=== PATIENT | female | born 1985 ===

== ENCOUNTER 2022-01-12 14:12 | Outpatient (REF) | payer OTHER, SELFPAY ==
--- NOTE | ~2022-01-12 | CT_ITS ---
EXAMINATION: CT SINUS WITHOUT CONTRAST CLINICAL INFORMATION: Nasal polyps, sinusitis. COMPARISON: None TECHNIQUE: Axial 2 mm thin and reformatted 2 mm thin sagittal and coronal images of sinuses were obtained. This CT examination was performed using dose optimization techniques as appropriate, variously including the following: *Automated exposure control *Adjustment of mA and/or kV according to patient size (this includes techniques or standardized protocols for targeted exams where dose is matched to indication/reason for exam; i.e. extremities or head) *Use of iterative reconstruction technique DLP: 93 mGy-cm FINDINGS: FRONTAL SINUSES AND DRAINAGE PATHWAYS: There is minimal thickening of bilateral frontal sinuses with obstruction of frontoethmoidal recess from mucosal thickening more so on the right. MAXILLARY SINUSES AND DRAINAGE PATHWAYS: There is moderate mucosal thickening involving bilateral maxillary sinuses with obstructed ostiomeatal complex from mucosal thickening, more so on the right. ETHMOID SINUSES: There is diffuse mucoperiosteal thickening bilateral ethmoid sinuses slightly greater on the right. The ethmoid roofs are symmetric, with olfactory fossa depth of 0.4 cm on the right and 0.3 cm on the left. SPHENOID SINUSES AND DRAINAGE PATHWAYS: There is mucoperiosteal thickening bilateral sphenoid sinuses with complete opacification of left sphenoid sinus. There is vertical septation of the right sphenoid sinus. The sphenoid ostia are obstructed. The carotid canals are covered by bone. NASAL CAVITY/NASOPHARYNX: The nasal cavity is clear. There is mild nasal septal deviation/spurring to the right. The nasopharynx is symmetric. ADDITIONAL RELEVANT FINDINGS: No periapical disease is seen. The TMJs articulate normally. The orbits and skull base soft tissues are unremarkable. The middle ear cavities and mastoid air cells are clear. Limited evaluation demonstrates no acute intracranial findings. CT/CT sinus wo con IMPRESSION: Chronic pansinusitis. The inflammatory changes are more prominent on the right side throughout the sinuses. Obstructed bilateral ostiomeatal and frontoethmoidal recesses.
== END 2022-01-12 14:13 | disposition home or self-care (01) ==
LOC: HO.CT 14:12
PROVIDERS: Visit Provider Otolaryngology
DX: J33.9 Nasal polyp, unspecified (principal); J01.81 Other acute recurrent sinusitis
CPT/HCPCS: 70486

== ENCOUNTER 2025-05-07 11:29 | Outpatient (AMB) | payer OTHER, SELFPAY ==
--- OUTSIDE RECORDS SUMMARY | 2025-05-07 12:52 | XMS_ITS | Clinical Summary ---
Author Organization [facility] Address [address] [place] [id number] Care Team Providers Care Band Saw Runner Name Role Phone Rachna Jc MD Primary Care Provider [phone] Allergies Active Allergy Reactions Criticality Noted Date Comments Cholestatin Other (See Comments) 03/10/2022 Grass Pollen(K-O-R-T-Swt Burton) Other (See Comments) 03/10/2022 Other Other (See Comments) 03/10/2022 Pollen Extract Other (See Comments) 03/10/2022 Shellfish Allergy Unknown/Patient and Family Unable to Define Medium 01/08/2022 Medications amLODIPine (NORVASC) 5 MG tablet Take 1 tablet (5 mg total) by mouth daily. 2 Active montelukast (SINGULAIR) 10 MG tablet Take 1 tablet (10 mg total) by mouth nightly. 2 Active Symbicort 160-4.5 MCG/ACT inhaler INHALE 2 PUFFS 2 TIMES A DAY IN THE AM & PM USE WITH SPACER CHAMBER RINSE MOUTH AND THROAT 3 Active ondansetron (ZOFRAN-ODT) 4 MG disintegrating tablet TAKE 1 TABLET BY MOUTH EVERY 6 HOURS NEEDED NAUSEA/VOMIT ING 3 Active enoxaparin (LOVENOX) 40 MG/0.4ML injectionIndication s:BMI 40.0-44.9, adult (HCC) Inject 0.4 mL (40 mg total) under the skin daily. 11.2 mL 3 Active semaglutide (OZEMPIC) (1 mg/dose pen) prefilled pen injection Inject 1 mg under the skin once a week. TUESDAYS Active cyanocobalamin (VITAMIN B-12) 1000 MCG/ML injection Inject 0.1 mL (100 mcg total) under the skin every 7 days. Active triamcinolone (NASACORT AQ) 55 MCG/ACT Aerosol nasal spray 1 spray into each nostril nightly. Active cephalexin (KEFLEX) 500 MG capsuleIndications: Status post bilateral breast reduction Take 1 capsule (500 mg total) by mouth 4 (four) times a day. 12 capsule 3 Active oxyCODONE (ROXICODONE) 5 MG immediate release tabletIndications:S tatus post bilateral breast reduction Take 1 tablet (5 mg total) by mouth 4 times daily (every 6 hours) as needed for severe pain. Max Daily Amount: 20 mg 12 tablet 3 Active Active Problems Problem Noted Date Diagnosed Date Breast hypertrophy 02/20/2023 BMI 40.0-44.9, adult 02/20/2023 Anxiety disorder 03/06/2022 Myofascial pain syndrome, cervical 03/06/2022 Hypertension 03/06/2022 Migraine headache 03/06/2022 Family History Medical History Relation Name Comments No Known Problems Father Hypertension Mother Relation Name Status Comments Father Alive Mother Alive Social History Tobacco Use Types Packs/Day Years Used Date Smoking Tobacco: Never Smokeless Tobacco: Never Tobacco Cessation:Counseling Given: Not Answered Alcohol Use Standard Drinks/Week Comments Yes 0 (1 standard drink = 0.6 oz pur e alcohol) rarely once a month AUDIT-C Answer Date Recorded Q1: How often do you have a drink containing alc ohol? Monthly or less 03/04/2023 Q2: How many drinks containi ng alcohol do you have on a typical day when you are drinking? 1 or 2 03/04/2023 Q3: How often do you have si x or more drinks on one occasion? Never 03/04/2023 Comments No Sex and Gender Information Value Date Recorded Sex Assigned at Female 03/04/2023 2:57 PM EDT Legal Sex Female 9:39 AM EST Gender Identity Female 03/04/2023 2:57 PM EDT Sexual Orientation Heterosexual (straight) 03/04 2:57 PM EDT Last Filed Vital Signs Vital Sign Reading Time Taken Comments Blood Pressure 123/75 03/12/2023 12:00 PM EDT Pulse 68 03/12/2023 12:00 PM EDT Temperature 36.2 C (97.2 F) 03/12/2023 6:33 AM EDT Respiratory Rate 14 03/12/2023 12:00 PM EDT Oxygen Saturation 97% 03/12/2023 12:00 PM EDT Inhaled Oxygen Concentration - - Weight 94.3 kg (208 lb) 03/31/2023 12:56 PM EDT Height 157.5 cm (5' 2 ) 03/31/2023 12:56 PM EDT Body Mass Index 38.04 03/31/2023 12:56 PM EDT Plan of Treatment Health Maintenance Due Date Last Done Comments Hepatitis C Virus Screening 1987 HIV Screening 2000 DTaP/Tdap/Td Vaccines (1 - Tdap) 2006 Hepatitis B Vaccines (1 of 3 - 19+ 3-dose series) 2006 Pap Smear (Ages 21-65) 2008 HPV Vaccines (1 - 3-dose SCD M series) 2014 COVID-19 Vaccine ( - 2023-2 5 season) 2024 08/28/2021, 01/11/2021, 12/14/2020 Influenza Vaccine 04/20/2025 06/25/2016, 06/25/2016 Pneumococcal Vaccine: Pediatric (0-5 Years) and At-Risk Patients (6 to 49 Years) Aged Out No longer eligible b ased on patient's age to complete [place] [id number] [facility] Advance Directives * Full Code (Latest Code Status on File) Date Activated Date Inactivated Comments 03/12/2023 6:35 AM * Full Code Date Activated Date Inactivated Comments 03/06/2022 10:45 AM 03/12/2023 6:31 AM Care Teams Band Saw Runner Relationship Specialty Start Date End Date Rachna Jc MD [address] [place] [address] PCP - General Internal Medicine 10/24/21
--- OUTSIDE RECORDS SUMMARY | 2025-05-07 12:52 | XMS_ITS ---
Author Name [facility] Organization Unknown History of Medication Use Medication Directions Dispensed Refills Start Date End Date Stat us montelukast (Singulair) 10 MG tablet Take 1 tablet (10 mg total) by mouth. 01/19/2022 active amLODIPine (NORVASC) 5 MG tablet Take 1 tablet (5 mg total) by mouth daily. 01/02/2022 active semaglutide (OZEMPIC) (1 mg/dose pen) prefilled pen injection Inject 1 mg under the skin once a week. TUESDAYS active Allergies Allergen Reaction Severity Comment Documented Date Source Statu s POLLEN EXTRACT OTHER (SEE COMMENTS) 03/10/2022 [facility] active SHELLFISH ALLERGY UNKNOWN/PATIENT AND FAMILY UNABLE TO DEFINE 01/08/2022 [facility] active CHOLESTATIN OTHER (SEE COMMENTS) [facility] OTHER OTHER (SEE COMMENTS) [facility] Problems Problem Status Onset Date Problem Type Date of Resoluti on Source Breast hypertrophy active 2023-02-20 ProblemAct [facility] Migraine headache active 2022-03-06 ProblemAct [facility] S/P bilateral breast reduction active EncounterDiagnosisAct [facility] Hypertension active 2022-03-06 ProblemAct [facility] Anxiety disorder active 2022-03-06 ProblemAct [facility] BMI 40.0-44.9, adult active 2023-02-20 ProblemAct [facility] Myofascial pain syndrome, cervical active 2022-03-06 ProblemAct [facility] Encounters Encounter Type Encounter Reason Primary Diagnosis Location Date Ambulatory Other specified postprocedural states [facility] 03/31/2023 Ambulatory Hypertrophy of breast [facility] 03/16/2023 Ambulatory Other specified postprocedural states [facility] 03/12/2023 Ambulatory Hypertrophy of breast [facility] 02/10/2023 Ambulatory Hypertrophy of breast [facility] 11/11/2022 Ambulatory Other specified postprocedural states [facility] 05/05/2022 Ambulatory Excessive and re dundant skin and subcutaneous tissue [facility] 04/07/2022 Ambulatory Excessive and re dundant skin and subcutaneous tissue [facility] 03/17/2022 Ambulatory Excessive and re dundant skin and subcutaneous tissue [facility] 03/10/2022 Ambulatory Other specified postprocedural states [facility] 03/06/2022 Ambulatory Body mass index (BMI) 37.0-37.9, adult [facility] 02/12/2022 Ambulatory Body mass index (BMI) 37.0-37.9, adult [facility] 01/08/2022 Care Team Organization Name Specialty Phone Email Start Date End Da te [facility] 05/05/2022 [facility] 01/08/2022 022
== END 2025-05-07 11:35 | disposition home or self-care (01) ==
LOC: HO.HMGAL 11:29
PROVIDERS: PCP Internal Medicine; Visit Provider Registered Nurse Emergency
DX: J30.89 Other allergic rhinitis (principal)
CPT/HCPCS: 95117; 95165

== ENCOUNTER 2025-07-30 09:45 | Outpatient (AMB) | payer OTHER, SELFPAY ==
--- OUTSIDE RECORDS SUMMARY | 2025-07-30 11:10 | XMS_ITS | Clinical Summary ---
Author Organization [facility] Address [address] [place] [id number] Care Team Providers Care Loom Doffer Name Role Phone Rachna Jc MD Primary Care Provider [phone] Allergies Active Allergy Reactions Criticality Noted Date [...] series) 2006 Pap Smear (Ages 21-65) 2008 Influenza Vaccine 04/20/2025 06/25/2016, 06/25/2016 COVID-19 Vaccine (4 - 2024-2 6 season) 2025 08/28/2021, 01/11/2021, 12/14/2020 HPV Vaccines (No Doses Required) Completed Pneumococcal Vaccine: Pediatric (0-5 Years) and At-Risk Patients (6 to 49 Years) Aged Out No longer eligible b ased on patient's age to complete this topic [place] [id number] [facility] Advance Directives * Full Code (Latest Code Status on File) Date Activated Date Inactivated Comments 03/12/2023 6:35 AM * Full Code Date Activated Date Inactivated Comments 03/06/2022 10:45 AM 03/12/2023 6:31 AM Care Teams Loom Doffer Relationship Specialty Start Date End Date Rachna Jc MD [address] [place] [address] PCP - General Internal Medicine 10/24/21
== END 2025-07-30 09:46 | disposition home or self-care (01) ==
LOC: HO.HMGAL 09:45
PROVIDERS: PCP Internal Medicine; Visit Provider Registered Nurse Emergency
DX: J30.89 Other allergic rhinitis (principal)
CPT/HCPCS: 95117; 95165

== ENCOUNTER 2025-09-10 09:44 | Outpatient (AMB) | payer OTHER, SELFPAY ==
--- OUTSIDE RECORDS SUMMARY | 2025-09-10 11:13 | XMS_ITS | Clinical Summary ---
Author Organization [facility] Address [address] [place] [address] Care Team Providers Care Instructor Weaving Name Role Phone Rachna Jc MD Primary Care Provider [phone] Allergies Active Allergy Reactions Criticality Noted Date [...] age to complete this topic [place] [id number] [facility] Advance Directives * Full Code (Latest Code Status on File) Date Activated Date Inactivated Comments 03/12/2023 6:35 AM * Full Code Date Activated Date Inactivated Comments 03/06/2022 10:45 AM 03/12/2023 6:31 AM Care Teams Instructor Weaving Relationship Specialty Start Date End Date Rachna Jc MD [address] [place] [address] PCP - General Internal Medicine 10/24/21
== END 2025-09-10 09:47 | disposition home or self-care (01) ==
LOC: HO.HMGAL 09:44
PROVIDERS: PCP Internal Medicine; Visit Provider Registered Nurse Emergency
DX: J30.89 Other allergic rhinitis (principal)
CPT/HCPCS: 95117; 95165